=== PATIENT | male | born 1945 | race Caucasian/White ===

== ENCOUNTER 2017-11-03 11:58 | Inpatient (IN) ==
[2017-11-03] MEDS: Aspirin 81 MG TAB.CHEW PO SCH (14:19)
[2017-11-03 14:48] LABS: Basophils % 0.5 %; Eosinophils # 0.2 K/mcL (0.0-0.6); Eosinophils % 3.5 %; Hematocrit 39.8 % (37.5-50.1); Hemoglobin 13.1 g/dL (12.9-16.9); Immature Granulocytes % 0.2 % (0-4); Lymphocytes # 1.7 K/mcL (0.6-4.6); Lymphocytes % 25.2 %; Mean Corpuscular HGB Conc 32.9 g/dL (31.6-35.5); Mean Corpuscular Hemoglobin 27.6 pg (28.0-33.3); Monocytes # 0.4 K/mcL (0.0-1.3); Monocytes % 5.9 %; Neutrophils # 4.3 K/mcL (1.6-8.9); Platelet Count 203 K/mcL (140-400); Red Blood Count 4.74 M/mcL (4.19-5.50); Red Cell Distribution Width 13.2 % (11.5-14.5); Segmented Neutrophils % 64.7 %
[2017-11-03 14:54] LABS: INR 1.1; Prothrombin Time 12.1 Seconds (9.4-12.1)
[2017-11-03] MEDS ORDERED: ISOVUE-370 200 ML INFUS..BTL IV ONE (14:55)
[2017-11-03] MEDS ORDERED: Heparin 1,000 UNITS/500 mL 500 ML ONE ×2 (14:55→15:45)
[2017-11-03] MEDS ORDERED: 0.9 % Sodium Chloride 1,000 ML ONE ×2 (14:55→15:14)
[2017-11-03] MEDS ORDERED: *HR* Heparin 10,000 UNIT/10 ML VIAL ONE (14:55)
[2017-11-03] MEDS ORDERED: Nitroglycerin 1,000 MCG/10 ML VIAL IV ONE ×2 (14:55→15:51)
--- NOTE | 2017-11-03 14:57 | Cardiology History & Physical ---
<Enmanuel Drew L - Last Filed: 11/03/17 14:55> Date of Encounter: 11/03/17 Time of Encounter: 14:55 Assessment and Plan (1) Abnormal stress test Current Visit: Yes Status: Acute The assessment and plan as outlined above was discussed with the patient and/or family members who expressed understanding and agreement. All questions were answered. Sent from [facility] by Dr. Mejia for severely abnormal stress test. Stress test showed ischemia in the inferiolateral leads during stress. There was TID. Perfusion imaging showed a large sized, moderate intensity defect in the inferior and inferiolateral wall. C/o typical chest pain symptoms. Cardiac risk factors include significant family history, HTN, HLD. R/B/A of [facility] reviewed with patient and . He is agreeable to proceed. Labs pending. (2) Unstable angina Current Visit: Yes Status: Acute The assessment and plan as outlined above was discussed with the patient and/or family members who expressed understanding and agreement. All questions were answered. (3) Hypertension Current Visit: No Status: Chronic The assessment and plan as outlined above was discussed with the patient and/or family members who expressed understanding and agreement. All questions were answered. Continue HCTZ. Qualifiers: Hypertension type: essential hypertension Qualified Code(s): I10 - Essential (primary) hypertension History of Present Illness Chief complaint: NSTEMI HPI: Mr. Sorensen is a 72 year old male with past medical history of HTN and HLD who presented from out patient stress lab with abnormal stress test and chest pain. He c/o intermittent substernal chest pain radiating to his neck with physical exertion over the past several months that increased in the past month. Denies SOB or palpitations. Denies orthopnea, PND, or edema. Denies previous history of CAD. Past Med Surg Social Fam HX - Past Medical History Medical history: hyperlipidemia, hypertension Psychiatric history: no psych history - Past Surgical History Surgical History: no surgical history - Social History Smoking Status: Never smoker Smokeless Tobacco Status: No Alcohol use: none Drug use: none - Family History Mother Living Status: Age at : 56 Cause of : CANCER OVERIAN Father Living Status: Age at : 46 Cause of : [place] Medications and Allergies Atorvastatin [Lipitor] 40 mg PO HS 03/04/17 [History] hydroCHLOROthiazide [Hydrochlorothiazide] 25 mg PO DAILY 12/06/17 [History] 3 Allergy/AdvReac Type Severity Reaction Status Date / Time No Known Allergies Allergy Verified 11/03/17 15:04 All Systems Review: The remainder of the systems were reviewed and are negative Physical Examination Vital Signs, Last 4 Hours Temp Pulse Resp BP Pulse Ox 11/03/17 13:30 97.7 F 62 18 145/88 99 General: Conversant, No Apparent Distress HEENT: Atraumatic, Normocephaly, Mucus Membranes Moist Neck: No JVD, Normal carotid pulses Cardiac: Reg Rate and Rhythm, Normal S1 and S2, No Murmur Lungs: Normal Breath Sounds, No Wheeze, Rales, Rhonchi Neuro: Alert and responsive, No focal deficits noted Abdomen: Soft, Non-Tender Skin: No rashes noted on visualized skin Musculoskeletal: No Chest Wall Tenderness Extremities: No Clubbing, No Cyanosis, No Edema, Normal Pulses Results 11/03/17 14:20 Lab Results 11/03/17 14:20 WBC 6.6 Hgb 13.1 Hct 39.8 Plt Count 203 - Imaging and Cardiology Stress Test: report reviewed - EKG Interpretation EKG results cardiology: personally reviewed <Kel Hidalgo - Last Filed: 11/03/17 15:14> Date of Encounter: 11/03/17 - Attending Attestation I have personally performed a face to face evaluation on this patient. I have reviewed and agree with the care plan. History and Exam by me shows: 72 YOM with crescendo angina presents after an abnormal stress test with significant ischemia and TID. LVEF preserved. R/B/A d/w pt and he agrees to proceed with a [facility]. History of Present Illness HPI: Mr. Sorensen is a 72 year old male All Systems Review: The remainder of the systems were reviewed and are negative Physical Examination Vital Signs, Last 4 Hours Temp Pulse Resp BP Pulse Ox 11/03/17 13:30 97.7 F 62 18 145/88 99 Results 11/03/17 14:20 11/03/17 14:20 Lab Results 11/03/17 11/03/17 11/03/17 14:20 14:20 14:20 WBC 6.6 Hgb 13.1 Hct 39.8 Plt Count 203 INR 1.1 Sodium 142 Potassium 4.4 Chloride 106 Carbon Dioxide 32 H BUN 24 H Creatinine 0.87 Glucose 97 Calcium 9.6
[2017-11-03 14:59] LABS: BUN/Creatinine Ratio 28 (6-26); Blood Urea Nitrogen 24 mg/dL (8-23); Calcium 9.6 mg/dL (8.6-10.3); Carbon Dioxide 32 mEq/L (23-29); Chloride 106 mEq/L (98-107); Glucose 97 mg/dL (70-105); Osmolality,Calculated 298 (280-300); Potassium 4.4 mEq/L (3.5-5.1); Sodium 142 mEq/L (136-145); eGFR For African Americans > 60 (> 60); eGFR For Non-African Americans > 60 (> 60)
--- NOTE | 2017-11-03 15:12 | Pre-Sedation Evaluation ---
Pre-sedation evaluation - Pre-sedation checklist Date of procedure: 11/03/17 Procedure: LEFT HEART CATH Recent Vitals: Last Vital Signs Temp 97.7 F 11/03/17 13:30 Pulse 62 11/03/17 13:30 Resp 18 11/03/17 13:30 BP 145/88 11/03/17 13:30 Pulse Ox 99 11/03/17 13:30 H&P (including ROS) documented in medical record: (TRANSFER FROM [facility]) Previous reaction to sedatives/anesthetics: No Dietary Status: NPO after Midnight Dentition: No loose teeth or bridges ASA Classification *see protocol: CLASS II-Mild systemic disease
[2017-11-03] MEDS ORDERED: *HR* FentaNYL (PF) 100 MCG/2 ML VIAL ONE ×2 (15:13→15:53)
[2017-11-03] MEDS ORDERED: *HR* Midazolam HCl 2 MG/2 ML VIAL ONE ×2 (15:13→15:53)
[2017-11-03] MEDS ORDERED: Heparin 25,000 UNIT/500 ML D5W 25,000 UNIT/500 ML BAG IVC ONE (15:39)
[2017-11-03] MEDS ORDERED: Nitroglycerin Spray 4.9 GM BOTTLE ONE ×2 (15:45→15:49)
[2017-11-03] MEDS ORDERED: *HR* Labetalol 100 MG/20 ML MDV ONE (15:48)
[2017-11-03] MEDS ORDERED: Dextrose 50 % in Water (Vial) 30 ML, Sodium Bicarbonate 20 MEQ, Potassium Chloride 15 M... TH ONE (16:34)
[2017-11-03] MEDS ORDERED: Norepinephrine 4 MG in D5% in Water 250 ML IVC PRN (16:34)
[2017-11-03] MEDS ORDERED: Insulin Human Regular 100 UNIT in 0.9 % Sodium Chloride 100 ML IV PRN (16:34)
--- NOTE | 2017-11-03 16:43 | Cardiothoracic Consult Note ---
Date of Encounter: 11/03/17 Time of Encounter: 16:40 Assessment and Plan (1) Unstable angina Current Visit: Yes Status: Acute The assessment and plan as outlined above was discussed with the patient and/or family members who expressed understanding and agreement. All questions were answered. I discussed emergency coronary artery bypass grafting with the patient. This would include a left internal mammary artery to his LAD. We will attempt to graft the circumflex. However, the marginal branches are quite small and may not be graftable. We will also attempt to graft the diagonal branch. Risks of surgery include , infection, stroke, bleeding, myocardial infarction, clots around the heart, renal or respiratory failure, acute or chronic graft closure, phrenic nerve injury and sternal dehiscence. The procedure, its risks , and if it is and alternatives were explained and he wishes to proceed. At this point, he has no questions. - History of Present Illness History of present illness: Mr. Sorensen is a 72 year old male The patient is a 72-year-old gentleman who was admitted with a positive stress test. He has had a history of angina for several months, but no history of myocardial infarction. Cardiac catheterization revealed calcified left main disease and proximal LAD. He had 10 out of 10 chest pain in the [employer]. However, in an intra-aortic balloon pump was inserted in this chest pain reduced to 2. His LAD in diagonal looked to be bypassable. His right coronary artery and marginal branches of the circumflex looked quite small and probably will not be bypassable. Past medical history is notable for hypertension and hyperlipidemia. Family history is positive for coronary artery disease. Social history. He is a [employer], but does accept blood. Does not smoke and does not drink. Review of systems is negative for stroke or TIA. Negative for saphenous vein varicosities or strippings. Past Med Surg Social Fam HX - Past Medical History Medical history: hyperlipidemia, hypertension Psychiatric history: no psych history - Past Surgical History Surgical History: no surgical history - Social History Smoking Status: Never smoker Smokeless Tobacco Status: No Alcohol use: none Drug use: none - Family History Mother Living Status: Age at : 56 Cause of : CANCER OVERIAN Father Living Status: Age at : 46 Cause of : [place] Medications and Allergies Atorvastatin [Lipitor] 40 mg PO HS 03/04/17 [History] hydroCHLOROthiazide [Hydrochlorothiazide] 25 mg PO DAILY 06/16/17 [History] 3 Allergy/AdvReac Type Severity Reaction Status Date / Time No Known Allergies Allergy Verified 11/03/17 15:04 All Systems Review: The remainder of the systems were reviewed and are negative Physical Examination Vital Signs, Last 4 Hours Temp Pulse Resp BP Pulse Ox 11/03/17 13:30 97.7 F 62 18 145/88 99 Pupils are equal, round and reactive to light and accommodation. No oral lesions. Neck is supple. Trachea in the midline. No thyromegaly or carotid bruits. Lungs are clear to percussion and auscultation. Heart is in a regular rate and rhythm. No murmurs, gallops or rubs. Abdomen is benign. No tenderness, rebound or guarding. Extremities without saphenous vein varicosities or strippings. Without edema. Cranial nerves, motor and sensory intact. Results 11/03/17 14:20 11/03/17 14:20 Lab Results, Last 24 hours 11/03/17 11/03/17 11/03/17 14:20 14:20 14:20 WBC 6.6 Hgb 13.1 Hct 39.8 Plt Count 203 INR 1.1 Sodium 142 Potassium 4.4 Chloride 106 Carbon Dioxide 32 H BUN 24 H Creatinine 0.87 Glucose 97 Calcium 9.6 Consult Discharge Plan - Plan Referrals: Kristie Anand MD [Primary Care Provider] -
[2017-11-03] MEDS ORDERED: CeFAZolin Syr 2,000MG/20 ML 2,000 MG/20 ML SYRINGE IVPB ONE (16:47)
[2017-11-03 17:30] LABS: INR 1.2
[2017-11-03] MEDS ORDERED: Verapamil 5 MG/2 ML VIAL ONE (17:30)
[2017-11-03 17:34] LABS: BUN/Creatinine Ratio 29 (6-26); Blood Urea Nitrogen 23 mg/dL (8-23); Carbon Dioxide 29 mEq/L (23-29); Chloride 106 mEq/L (98-107); Chol/HDL Ratio 2.6 (0-4.9); Cholesterol 162 mg/dL (< 200); Glucose 108 mg/dL (70-105); HDL Cholesterol 63 mg/dL (40-59); LDL Cholesterol,Calculated 90 mg/dL (0-99); Osmolality,Calculated 292 (280-300); Sodium 139 mEq/L (136-145); Triglycerides 43 mg/dL (< 150); eGFR For African Americans > 60 (> 60); eGFR For Non-African Americans > 60 (> 60)
[2017-11-03 17:48] LABS: Activated Partial Thrombo Time > 360.0 Seconds (26.0-36.0)
[2017-11-03 17:53] LABS: Heparin anti-factor XA UFH 0.98 IU/mL (0.30-0.70)
[2017-11-03] MEDS ORDERED: *HR* FentaNYL (PF) 250 MCG/5 ML VIAL ONE (18:13)
[2017-11-03] MEDS ORDERED: *HR* Midazolam HCl 5 MG/5 ML VIAL IVP ONE (18:13)
--- NOTE | 2017-11-03 18:31 | Invasive Diagnostic Lab Proc ---
Name: Timoteo Sorensen Date of Study: 11/03/2017 Date: 1945 Ht: 71.0in Medical Record#: [id number] Age: 72 Wt: 185.41lb Gender: Male BSA: 2.04 Order #: [id number] BMI: 25.87 Physicians Procedure Physician: Kel Hidalgo MD Referring MD: Referring MD: Staff Name Position Time In Neisha Lim RN Cattle Dipper 03:13 PM Arron Lynne RN Monitor 03:13 PM Bibiana Espinoza RT Scrub 03:13 PM Nany Ng RN Cattle Dipper 03:14 PM Indications Indication Abnormal Test - Stress Procedures Performed Procedure L HRT ARTERY/VENTRICLE ANGIO IABP INSERTION, PERCUTANEOUS Pre-Procedure Checklist Informed consent is complete signed and on chart. H&P is on chart. ID band is on and ID verified with patient. Patient NPO for procedure The procedure was described for the patient and questions were answered. Blood Pressure: 142/84 ECG is on chart. Rhythm: NSR Plan of Care Patient will tolerate the procedure without complications. Adequate level of comfort will be maintained. Hemodynamics will remain stable Patient will recover from procedure without complications. Respiratory function will be maintained. Cardiac rhythm will remain stable. Patient temperature will be maintained. Patient and/or family have verbalized understanding of the procedure. Patient Education Chief Complaint/Reason for Test: Cardiac Cath Developmental Category: Geriatric (65+ years) Developmentally Appropriate for Age: Yes Learning Barriers: None Education Needs: Procedure Education Method: Verbal Information Taught: Cardiac Cath Educational Evaluation: Able to repeat information Intravenous Access Time IV Size Location DC'd Fluid/Drip Rate Units RN 03:09 PM 18g 1 1/4" Patent On Arrival Rt Arm 0.9NaCl 25 ml/hr Neisha Lim RN 04:00 PM Started with 18g needle 1 1/4" Lt Antecubital Nany Ng RN Allergies No Known Allergies Vital Signs Time BP (mmHg) HR (bpm) O2 Sat. RR (bpm) LOC 03:17 PM / % 5 = Fully awake and oriented or at pre-proc level 03:17 PM / % 5 = Fully awake and oriented or at pre-proc level 03:32 PM / % 4 = Oriented but drowsy 03:48 PM / % 4 = Oriented but drowsy 04:03 PM / % 4 = Oriented but drowsy 04:18 PM / % 4 = Oriented but drowsy 03:18 PM 142 / 84 77 97 % 16 03:22 PM 136 / 84 69 100 % 49 03:27 PM 130 / 74 74 100 % 20 03:32 PM 132 / 78 76 100 % 16 03:37 PM 129 / 74 83 99 % 23 03:42 PM 141 / 100 78 100 % 26 03:48 PM 144 / 103 84 97 % 6 03:52 PM 156 / 108 84 97 % 11 03:57 PM 146 / 90 74 94 % 17 04:04 PM 142 / 86 75 96 % 30 04:09 PM 140 / 82 69 94 % 7 04:13 PM 138 / 104 73 96 % 13 04:19 PM 134 / 95 73 95 % 8 04:24 PM 126 / 88 70 95 % 24 04:29 PM 136 / 85 72 97 % 17 04:33 PM / % 5 = Fully awake and oriented or at pre-proc level 04:49 PM / % 4 = Oriented but drowsy 05:04 PM / % 4 = Oriented but drowsy 05:19 PM / % 4 = Oriented but drowsy 05:45 PM 114 / 45 64 % 15 5 = Fully awake and oriented or at pre-proc level 05:34 PM / % 5 = Fully awake and oriented or at pre-proc level 05:54 PM 115 / 49 61 % 16 5 = Fully awake and oriented or at pre-proc level 05:49 PM / % 5 = Fully awake and oriented or at pre-proc level 06:09 PM 134 / 36 62 % 14 5 = Fully awake and oriented or at pre-proc level 06:04 PM / % 5 = Fully awake and oriented or at pre-proc level Procedural Medications Time Medication Dose Units Method Given By 03:17 PM Versed 1 mg Intravenous Neisha Lim RN 03:18 PM Fentanyl 50 mcg Intravenous Neisha Lim RN 03:26 PM Lidocaine 2% 10 ml Subcutaneous Kel Hidalgo MD 03:26 PM Lidocaine 2% 8 ml Subcutaneous Kel Hidalgo MD 03:38 PM Heparin 1000 units Intravenous Nany Ng RN 03:43 PM Heparin 4000 units Intravenous Nany Ng RN 03:43 PM Nitroglycerin 200 mcg Intraarterial Maximo Hidalgo MD 03:46 PM Versed 1 mg Intravenous Nany Ng RN 03:46 PM Fentanyl 50 mcg Intravenous Nany Ng RN 03:46 PM Nitroglycerin 700 mcg Intraarterial Maximo Hidalgo MD 03:49 PM Labetolol 10 mg Intravenous Nany Ng RN 03:50 PM Heparin 1000 units/hr Intravenous Nany Ng RN 03:54 PM Versed 0.5 mg Intravenous Nany Ng RN 03:54 PM Fentanyl 25 mcg Intravenous Nany Ng RN 03:55 PM Nitroglycerin 400 mcg Sublingual Nany Ng RN 03:57 PM Nitroglycerin 400 mcg Sublingual Nany Ng RN 04:01 PM Versed 0.5 mg Intravenous Neisha Lim RN 04:02 PM Fentanyl 25 mcg Intravenous Neisha Lim RN 04:09 PM Oxygen 4 L/min nasal cannula Nany Ng RN ASA Classification: CLASS II- Mild systemic disease (i.e. well-controlled diabetes, hypertension, asthma, cigarette smoking) Mariaelena Score Preprocedure Postprocedure Activity 2- Moves 4 extremities sustained head lift Activity 2- Moves 4 extremities sustained head lift Circulation 2- SBP +/= 20 points of pre-anesthetic level Circulation 2- SBP +/= 20 points of pre-anesthetic level Consciousness 2- Awake and alert oriented x 3 Consciousness 2- Awake and alert oriented x 3 O2 Saturation 2- Able to maintain O2 satruation of 92% on room air O2 Saturation 2- Able to maintain O2 satruation of 92% on room air Respiratory 2- Able to deep breathe and cough well Respiratory 2- Able to deep breathe and cough well Total Score 10 Total Score 10 Contrast Agent: Isovue Diagnostic Contrast: 70 ml Total Contrast: 70 ml Fluoro Dose: 424 mGy Procedure Log Time Note Enter By 03:13 PM Pt arrived to collaborative physician 1 at 15:13 cedwards 03:13 PM Neisha Lim RN Position: Cattle Dipper Time in: 15:13 cedwards 03:13 PM Arron Lynne RN Position: Monitor Time in: 15:13 cedwards 03:14 PM Bibiana Espinoza RT Position: Scrub Time in: 15:13 cedwards 03:14 PM Nany Ng RN Position: Cattle Dipper Time in: 15:14 cedwards 03:15 PM Physician arrived 15:15 cedwards 03:15 PM Petrona completed cedwards 03:15 PM Sign in performed according to hospital policy. cedwards 03:15 PM Procedure start 15:15 cedwards 03:15 PM CathStat 03:16 PM Vitals capture started with the following parameters, Patient=Adult, Interval=5 min, Initial Mshsiupf=606 mmHg, Deflation Rate=3 mmHg, Cuff placed on Right Arm 03:16 PM Patient charges- Angio tray pack, Navilyst 3mm J, Pulse Oximetry and ACIST tubing and transducer cedwards 03:17 PM Hair removed from procedure site in holding area using clippers. Bilateral groin prepped with Chloraprep by Deann Bhandari (R), then patient was draped. Skin intact. cedwards 03:17 PM Time: 15:17 Oxygen on at 2 L/min per nasal cannula by Neisha Lim RN cedwards 03:17 PM Recorded ECG: HR=76 Condition=Condition 1 03:17 PM Time: 15:17 Patient comfortable and pain free: Yes cedwards :17 PM Time: 15:17LOC: 5 = Fully awake and oriented or at pre-proc level cedwards 03:18 PM Time: 15:17 Versed 1 mg Intravenous Given by Neisha Lim RN cedwards 03:18 PM Time: 15:18 Fentanyl 50 mcg Intravenous Given by Neisha Lim RN cedwards 03:18 PM HR=77 bpm, IZFR=667/84 mmhg, SpO2=97.0 %, Resp=16 B/min 03:18 PM Clinical Presentation: Unstable angina cedwards 03:22 PM HR=69 bpm, QWMP=874/84 mmhg, AkQ6=490.0 %, Resp=49 B/min 03:23 PM ASA Class CLASS II- Mild systemic disease (i.e. well-controlled diabetes, hypertension, asthma, cigarette smoking) cedwards 03:23 PM Time out performed according to hospital policy cedwards 03:25 PM Pressure channel 1 zeroed. 03: PM Time: 15:26 10 ml Lidocaine 2% to right groin Subcutaneous Given by Kel Hidalgo MD cedwards 03: PM Time: 15:26 8 ml Lidocaine 2% to right groin Subcutaneous Given by Kel Hidalgo MD cedwards 03: PM Micro-Introducer Kit utilized for sheath placement cedwards 03:27 PM HR=74 bpm, CPWI=345/74 mmhg, HeL4=372.0 %, Resp=20 B/min 03:28 PM Access obtained by percutaneous puncture. 6Fr 10cm Terumo [place] sheath placed in right Femoral artery. [id number] ced 03:28 PM 3mL of contrast injected for right groin angiogram cedwards 03:29 PM 0.035 145cm Navilyst 3mmJ wire [id number] ced 03:29 PM 5Fr FR 4 catheter inserted over the wire [facility] ced 03:29 PM Recorded Pressure: Ao, HR=75, Condition=Condition 1 (Aorta) Ao 132/77/101 03:31 PM RCA angiography performed in multiple views. ced 03:31 PM Catheter removed ced 03:32 PM 5Fr FL 4 catheter inserted over the wire [facility] cedwards 03:32 PM HR=76 bpm, AHDW=197/78 mmhg, RgQ4=017.0 %, Resp=16 B/min 03:32 PM Time: 15:17 Patient comfortable and pain free: Yes cedwards 03:32 PM Recorded Pressure: Ao, HR=79, Condition=Condition 1 (Aorta) Ao 121/81/102 03:32 PM Time: 15:17LOC: 5 = Fully awake and oriented or at pre-proc level cedwards 03:34 PM LCA angiography performed in multiple views. cedwards 03:34 PM Recorded Pressure: Ao, HR=82, Condition=Condition 1 (Aorta) Ao 117/81/100 03:36 PM Catheter removed cedwards 03:36 PM 6Fr FL 4 catheter inserted over the wire [facility] cedwards 03:37 PM HR=83 bpm, QQAS=588/74 mmhg, SpO2=99.0 %, Resp=23 B/min 03:38 PM Time: 15:38 Heparin 1000 units Intravenous Given by Nany Ng RN ced 03:38 PM LCA angiography performed in multiple views. ced 03:39 PM Catheter removed ced 03:39 PM Cardiothoracic surgeon consulted by physician cedwards 03:40 PM Did you address BRIGHT flow and Dominance? Yes cedwards 03:40 PM Isovue 370 - 200ml,1 Bottle(s) used. cedwards 03:42 PM HR=78 bpm, SOEV=991/100 mmhg, MvM9=430.0 %, Resp=26 B/min 03:42 PM chest pain rated at a 5 out of 10 cedwards 03:43 PM Time: 15:43 Heparin 4000 units Intravenous Given by Nany Ng RN cedwards 03:43 PM Time: 15:43 Nitroglycerin 200 mcg Intraarterial Given by Maximo Hidalgo MD cedwards 03:44 PM Recorded ECG: HR=84 Condition=Condition 1 03:46 PM Time: 15:46 Versed 1 mg Intravenous Given by Nany Ng RN cedwards 03:46 PM Time: 15:46 Fentanyl 50 mcg Intravenous Given by Nany Ng RN cedwards 03:46 PM Time: 15:46 Nitroglycerin 700 mcg Intraarterial Given by Maximo Hidalgo MD cedwards 03:47 PM Recorded Pressure: Ao, HR=86, Condition=Condition 1 (Aorta) Ao 174/101/131 03:48 PM Time: 15:32LOC: 4 = Oriented but drowsy cedwards 03:48 PM Time: 15:32 Patient comfortable and pain free: No cedwards 03:48 PM HR=84 bpm, ONKN=670/103 mmhg, SpO2=97.0 %, Resp=6 B/min 03:49 PM Chest pain rated at a 10 out of 10, Dr. Hidalgo on phone with Dr. Redd cedwards 03:50 PM Time: 15:49 Labetolol 10 mg Intravenous Given by Nany Ng RN cedwards 03:50 PM Time: 15:50 Heparin 1000 units/hr Intravenous Given by Nany Ng RN cedwards 03:52 PM HR=84 bpm, FUZV=997/108 mmhg, SpO2=97.0 %, Resp=11 B/min 03:53 PM ICU bed requested cedwards 03:53 PM Perfusion made aware of patient status cedwards 03:53 PM Preparing for balloon pump placement cedwards 03:54 PM Recorded Pressure: Ao, HR=85, Condition=Condition 1 (Aorta) Ao 171/96/127 03:54 PM Time: 15:54 Versed 0.5 mg Intravenous Given by Nany Ng RN cedwards 03:54 PM Time: 15:54 Fentanyl 25 mcg Intravenous Given by Nany Ng RN cedwards 03:55 PM Time: 15:55 Nitroglycerin 0.4 mcg Sublingual Given by Nany Ng RN cedwards 03:56 PM Chest Pain rated at a 5 out of 10 now ced 03:57 PM HR=74 bpm, WFTP=349/90 mmhg, SpO2=94.0 %, Resp=17 B/min 03:57 PM Time: 15:57 Nitroglycerin 0.4 mcg Sublingual Given by Nany Ng RN 04:02 PM Time: 16:01 Versed 0.5 mg Intravenous Given by Neisha Lim RN 04:02 PM Time: 16:02 Fentanyl 25 mcg Intravenous Given by Neisha Lim RN cedwards 04:02 PM 8 Fr Maquet Balloon Pump IABP catheter inserted into right Femoral artery, 50 cc, *ACC* catheter inserted 1 ced 04: PM Time: 15:48 Patient comfortable and pain free: Yes : PM Time: 15:48LOC: 4 = Oriented but drowsy ced 04:03 PM Vitals capture started with the following parameters, Patient=Adult, Interval=5 min, Initial Avdymeno=712 mmHg, Deflation Rate=3 mmHg, Cuff placed on Right Arm 04:04 PM HR=75 bpm, GSHK=172/86 mmhg, SpO2=96.0 %, Resp=30 B/min 04:09 PM HR=69 bpm, IJBY=345/82 mmhg, SpO2=94.0 %, Resp=7 B/min 04:09 PM Time: 16:09 Oxygen on at 4 L/min per nasal cannula by Nany Ng RN ced 04:10 PM IABP Settings: 1:1 ratio ECG trigger ced 04:11 PM IABP sheath sutured to skin cedwards 04:12 PM Patient rated 2 out of 10 chest pain. ced 04:13 PM NIBP STAT measurement started. 04:13 PM IABP Augmented pressure, mean: 116 ced 04:13 PM HR=73 bpm, EMRY=684/104 mmhg, SpO2=96.0 %, Resp=13 B/min 04:14 PM Procedure completed at 15:40 cedwards 04:14 PM Did you address BRIGHT flow and Dominance? Yes ced 04:17 PM Sign out completed: Radiation Dose 423.94 mGy Fluoro Time: 5.2 Isovue 370 - 200ml contrast 70 ml given by Kel Hidalgo MD. Complications: NoneCardiac Rehab Consult needed: NoConfirmed administered medications: Yes cedwards 04:17 PM Isovue 370 - 200ml,1 Bottle(s) used. cedwards 04:17 PM Sheath left in place to be pulled on floor/holding areaV+Pad cedwards 04:17 PM Estimated Blood Loss: less than 20cc cedwards 04:17 PM Post ECG NSR cedwards 04:17 PM Post Blood Pressure 138/104 cedwards 04:17 PM 16:17 Post Pulses Bilateral DP & PT 1+ cedwards 04:18 PM Information taught Cardiac Cath cedwards 04:18 PM Time: 16:03 Patient comfortable and pain free: Yes cedwards 04:18 PM Time: 16:03LOC: 4 = Oriented but drowsy cedwards 04:18 PM Education needs Procedure, Plan of Care, and Responsibilities of Patient in Care cedwards 04:18 PM Learning barriers :None cedwards 04:18 PM Education Methods Verbal cedwards 04:18 PM Education evaluation Able to repeat information cedwards 04:19 PM Site status No bleeding/hematoma - Rt Groin as reported by Bibiana Espinoza RT at 16:18 cedwards 04:19 PM Opsite applied cedwards 04:19 PM HR=73 bpm, MHTF=953/95 mmhg, SpO2=95.0 %, Resp=8 B/min 04:19 PM Plavix, Effient or Brilinta given No cedwards 04:22 PM Plan for patient to have open heart surgery as soon as OR is ready. Dr. Redd and team setting up for procedure now. cedwards 04:23 PM Family placed in consult room. Family updated. cedwards 04:24 PM HR=70 bpm, TLXH=553/88 mmhg, SpO2=95.0 %, Resp=24 B/min 04:29 PM HR=72 bpm, RORL=279/85 mmhg, SpO2=97.0 %, Resp=17 B/min 04:33 PM Time: 16:18LOC: 4 = Oriented but drowsy cedwards 04:33 PM Time: 16:18 Patient comfortable and pain free: Yes cedwards 04:44 PM Lab staff drawing labs on patient now. cedwards 04:48 PM Time: 16:33 Patient comfortable and pain free: Yes cedwards 04:49 PM Time: 16:33LOC: 5 = Fully awake and oriented or at pre-proc level cedwards 04:49 PM Coronary Dominance: Left cedwards 04:50 PM Lesion found in Ostial LAD. Pre Stenosis: 95 Pre BRIGHT Flow: cedwards 04:50 PM Lesion found in Proximal LAD. Pre Stenosis: 98 Pre BRIGHT Flow: cedwards 04:51 PM Proximal Left Anterior Descending Coronary Artery with 98% stenosis. If graft is supplying this territory, 0 % stenosis. cedwards 04:52 PM Lesion found in 1st diagonal. Pre Stenosis: 50 Pre BRIGHT Flow: cedwards 04:52 PM Mid/Distal Left Anterior Descending Coronary Artery and diagonal branches with 50% stenosis. If graft is supplying this area, 0 % stenosis cedwards 04:53 PM Lesion found in Ostial Circumflex. Pre Stenosis: 95 Pre BRIGHT Flow: cedwards 04:53 PM Circumflex, Obtuse Marginal, Left Posterior Descending, and Left Posterolateral Coronary Arteries with 95 % stenosis. If graft is supplying this area, 0 % stenosis cedwards 05:03 PM Time: 16:48 Patient comfortable and pain free: Yes cedwards 05:04 PM Time: 16:49LOC: 4 = Oriented but drowsy cedwards 05:08 PM Patient will go to ICU 2 when bed is ready. cedwards 05:12 PM Report given to Robinson PATEL Pt taken to ICU Room #2. 17:12 cedwards 05:19 PM Time: 17:04LOC: 4 = Oriented but drowsy cedwards 05:19 PM Time: 17:03 Patient comfortable and pain free: Yes cedwards 05:34 PM Time: 17:19 Patient comfortable and pain free: Yes cedwards 05:34 PM Time: 17:19LOC: 4 = Oriented but drowsy cedwards 05:45 PM awaiting ICU bed at this time cedwards 05:48 PM PTT >360, pt on heparin gtt. Abnormal recieved by Kj Mcmahon RN cedwards 05:49 PM Time: 17:34LOC: 5 = Fully awake and oriented or at pre-proc level csmith 05:49 PM Time: 17:34 Patient comfortable and pain free: Yes csmith 06:04 PM Time: 17:49 Patient comfortable and pain free: No csmith 06:04 PM Time: 17:49LOC: 5 = Fully awake and oriented or at pre-proc level csmith 06:04 PM 2/10 chest pain, VSS. Pt educated to notify staff if pain worsens or changes csmith 06:19 PM Time: 18:04LOC: 5 = Fully awake and oriented or at pre-proc level csmith 06:19 PM Time: 18:04 Patient comfortable and pain free: Yes csmith 06:21 PM Anesthesia, Aubrey Elkins RN, Miguelina Doe at bedside to transport patient to OR via IABP. csmith 06:21 PM Patient out of room: 18:21 csmith Complications Complication None Hemodynamics Pressures Site Systolic/A Wave Diastolic/V Wave Mean AO 132 77 101 AO 121 81 102 AO 117 81 100 AO 174 101 131 AO 171 96 127 Post Procedure Information Blood Pressure: 138/104 mmHg Rhythm: NSR Post procedural instructions were given Surgery consult for CABG Site Checks Time Location Status Staff Sheath In? Note 04:18 PM Rt Groin No bleeding/hematoma Bibiana Espinoza RT Yes balloon pump in place 05:46 PM Rt Groin No bleeding/ No Hematoma Robinson Mcmahon RN Yes IABP in place 05:55 PM Rt Groin No bleeding/ No Hematoma Robinson Mcmahon RN Yes IABP in place 06:14 PM Rt Groin No bleeding/ No Hematoma Robinson Mcmahon RN Yes IABP in place Pulses Time Site Pre-Procedure Post-Procedure Note 11/03/2017 3:09:00 PM Bilateral DP & PT 1+ 4:17:00 PM Bilateral DP & PT 1+ Updated by Arron Lynne RN on 11/03/2017 6:22:01 PM electronically signed on 11/03/2017 6:22:42 PM with status of Final
[2017-11-03 19:01] LABS: ABG Base Excess 2 mEq/L (-2 to 3); ABG Chloride 107 mEq/L (98-107); ABG Glucose 109 mg/dL (60-95); ABG HCO3 28 mEq/L (21-27); ABG Ionized Calcium 1.21 mmol/L (1.15-1.35); ABG Oxygen Saturation 100 % (95-98); ABG PCO2 49 mmHg (35-45); ABG PH 7.37 pH Units (7.32-7.45); ABG PO2 365 mmHg (85-104); ABG TCO2 30 mEq/L (20-26)
[2017-11-03] MEDS ORDERED: Nitroglycerin 25 MG/250 ML INFUS..BTL IVC ONE (19:02)
[2017-11-03] MEDS ORDERED: Albumin Human 5% 50.0 GM/1,000 ML VIAL ONE (19:03)
[2017-11-03] MEDS ORDERED: *HR* Etomidate 20 MG/10 ML AMPUL IVP ONE (19:59)
[2017-11-03] MEDS ORDERED: Protamine Sulfate 250 MG/25 ML VIAL IVP ONE (19:59)
[2017-11-03] MEDS ORDERED: Lidocaine 2% Syringe 100 MG/5 ML ONE (19:59)
[2017-11-03] MEDS ORDERED: Dexamethasone 4 MG/ML VIAL ONE (20:00)
[2017-11-03] MEDS ORDERED: *HR* Rocuronium Bromide 50 MG/5 ML VIAL ONE (20:00)
[2017-11-03] MEDS ORDERED: Ondansetron 4 MG/2 ML VIAL ONE (20:00)
[2017-11-03] MEDS ORDERED: *HR* PHENYLEPHRINE 1,000 MCG/10 ML SYRINGE IVP ONE (20:00)
[2017-11-03] MEDS ORDERED: Tranexamic Acid 1,000 MG/10 ML VIAL ONE (20:04)
[2017-11-03 20:16] LABS: ABG Base Excess 1 mEq/L (-2 to 3); ABG Chloride 108 mEq/L (98-107); ABG Glucose 115 mg/dL (60-95); ABG HCO3 25 mEq/L (21-27); ABG Ionized Calcium 1.12 mmol/L (1.15-1.35); ABG Oxygen Saturation 100 % (95-98); ABG PCO2 38 mmHg (35-45); ABG PH 7.43 pH Units (7.32-7.45); ABG PO2 525 mmHg (85-104); ABG TCO2 27 mEq/L (20-26)
--- NOTE | 2017-11-03 20:16 | Anesthesia Evaluation PreOp ---
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 HX Other Medical History: Denies Any Significant HX Anesthesia History: No Prior Anesthetic Complications, Past Anesthesia Alcohol Use: none Drug use: none Medications and Allergies Atorvastatin [Lipitor] 40 mg PO HS 03/04/17 [History] hydroCHLOROthiazide [Hydrochlorothiazide] 25 mg PO DAILY 06/16/17 [History] 3 Allergy/AdvReac Type Severity Reaction Status Date / Time No Known Allergies Allergy Verified 11/03/17 15:04 - Meds/Allergy Pre-op Review Medications Reviewed: Yes Allergies Reviewed: Yes Beta Blockers on Current Med List: No Anesthesia Results - Labs 11/03/17 14:20 11/03/17 17:05 Anesthesia Exam - HEENT Teeth: Poor dentition - Pulmonary Breath Sounds: bilateral Clear Respiratory Effort: Symmetrical Anesthesia Assess/Plan ASA Score: 4, E Modified [place] Scale for Level of Consciousness: Cooperative, oriented, and tranquil Anesthetic Plan: General Monitoring Plan: Standard Monitors, A-Line, PAC, WILLIS Recovery Plan: ICU
[2017-11-03 20:27] LABS: Estimated Average Glucose 126 mg/dl
[2017-11-03] MEDS ORDERED: Water for inj. (sterile) 10 ML IV ONE (20:42)
[2017-11-03] MEDS ORDERED: Propofol 500 MG/50 ML INFUS..BTL ONE (20:45)
[2017-11-03 20:52] LABS: ABG Base Excess 3 mEq/L (-2 to 3); ABG Chloride 104 mEq/L (98-107); ABG Glucose 203 mg/dL (60-95); ABG HCO3 27 mEq/L (21-27); ABG Ionized Calcium 0.95 mmol/L (1.15-1.35); ABG Oxygen Saturation 100 % (95-98); ABG PCO2 34 mmHg (35-45); ABG PO2 433 mmHg (85-104); ABG TCO2 28 mEq/L (20-26)
[2017-11-03] MEDS ORDERED: Protamine Sulfate 50 MG/5 ML VIAL IVP ONE (21:22)
[2017-11-03 21:25] LABS: ABG Base Excess 2 mEq/L (-2 to 3); ABG Chloride 100 mEq/L (98-107); ABG Glucose 170 mg/dL (60-95); ABG HCO3 27 mEq/L (21-27); ABG Ionized Calcium 1.01 mmol/L (1.15-1.35); ABG Oxygen Saturation 100 % (95-98); ABG PCO2 42 mmHg (35-45); ABG PH 7.41 pH Units (7.32-7.45); ABG PO2 273 mmHg (85-104); ABG TCO2 28 mEq/L (20-26)
[2017-11-03] MEDS ORDERED: Acetaminophen 325 MG TABLET PO PRN (22:07)
[2017-11-03] MEDS ORDERED: Ondansetron 4 MG/2 ML VIAL IVP PRN (22:07)
[2017-11-03] MEDS ORDERED: Potassium Chloride 40 MEQ/200 ML BAG IVPB PRN (22:07)
[2017-11-03] MEDS ORDERED: Naloxone 0.4 MG/ML INJ IVP PRN (22:07)
[2017-11-03] MEDS ORDERED: Insulin LISPRO 300 UNITS/3 ML VIAL SQ PRN (22:07)
[2017-11-03] MEDS ORDERED: *HR* Dextrose 50 % in Water (Syg) 50 ML SYRINGE IVP PRN (22:07)
[2017-11-03] MEDS ORDERED: *HR* Promethazine 25 MG/ML VIAL IVP PRN (22:07)
--- NOTE | 2017-11-03 22:27 | Anesthesia Evaluation Post Op ---
Date of Encounter: 11/03/17 Time of Encounter: 22:30 - Lungs Lungs: Clear Ascult./Percussion - Airway Airway: Intubated - Cardiovascular Regular Rate - Mental Status Mental Status: Sedated - Pain Pain Scale used: Unable to assess - Nausea Vomiting Nausea Vomiting: Not Present - Hydration Hydration: NPO
--- NOTE | 2017-11-03 22:30 | Operative Note ---
Date of procedure: 11/03/17 Was there an education assistant present: Yes Dental Specialist: Gonzalo Sequeira Estimated blood loss (cc): 750 Specimen: none Condition: critical Disposition: ICU Procedure in Detail: Preoperative diagnosis. Coronary artery disease. Postoperative diagnosis. Same. Procedures. Coronary artery bypass grafting 2 with the left internal mammary artery to the LAD in the aorta to the intermediate branch of the circumflex with saphenous vein. Surgeon. Dr. Gilberto Redd. Asst. Gonzalo Sequeira. The patient is a 72-year-old gentleman who presented with a positive stress test. Cardiac catheterization revealed severe coronary artery disease and he began to have 10 out of 10 chest pain. A percutaneous intra-aortic balloon pump was inserted and he was referred for emergency surgery. He was brought to the operating room where he underwent a general anesthetic. He was prepped and draped in standard fashion. The left greater saphenous vein was harvested from the left knee to the left ankle. This was done through 2 small incisions using the scope. These incisions were subsequently closed using a deep layer of 0 Vicryl and a 2-0 Vicryl subcuticular stitch. A standard median sternotomy was performed. The left internal mammary artery retractor was inserted and the left internal mammary artery was harvested in standard fashion using the Bovie electrocoagulation. Following this, the mammary retractor was removed and the standard sternal supervisor housecleaner was inserted. Pericardium was opened in the midline and was suspended with 2-0 silk stay sutures. A purse string of 20 Surgilon was placed in the aorta for the aortic cannulation site. A pursestring of 20 Surgilon was placed in the right atrial appendage for the venous uptake. The patient was heparinized. The aorta was cannulated without difficulty. 2 stage venous uptake cannula was inserted through the right atrial appendage. A pursestring of 3-0 silk was placed in the aorta and the cardioplegia needle was inserted through here. This was also uses an active and passive aortic vent. The patient was placed on cardiopulmonary bypass and cooled to 34.5 degrees. At this point, the aorta was crossclamped and a liter of antegrade cardioplegia was given. Topical cooling with iced saline slush was also done. Attention was first turned to the circumflex. The marginal branches were too small for grafting. We did select the intermediate branch. This was dissected free with the [place] blade and opened with a [place] blade and the Sosa scissors. This had a lumen of 1-1/2 mm with moderate diffuse disease. A standard end-to-side anastomosis was constructed using the saphenous vein and a 7-0 Prolene. When this was flushed, it did fill the distal circumflex. The patient received the last dose of antegrade cardioplegia. Mammary pedicle was harvested. Tonsil clamp was placed distally and was divided with the Metzenbaum scissors. Distal end was tied with a 2-0 silk suture. Proximal end was trimmed and brought into the wound. The LAD was dissected free with the [place] blade and found to be diffusely diseased out to its tip. It was opened distally with the [place] blade and the Sosa scissors. It had a lumen of 1-1/2 mm with moderate diffuse plaquing. A standard end-to- side anastomosis was constructed using the mammary artery and a 7-0 Prolene. When this is completed, the previously placed bulldog clamp was removed and the hemostasis was good. Pedicles tacked the service heart using 2 interrupted 5-0 silk sutures. Cross-clamp was removed and rewarming was begun. Total cross- clamp time was 35 minutes. A side-biting clamp was placed on the aorta and the cardioplegia needle was removed. A hole was made in the aorta using a [place] blade and the 4.5 mm aortic punch. A standard end-to-side anastomosis was constructed using the saphenous vein in a 5-0 Prolene. Following this, the side -biting clamp was removed. Graft was de-aired use #25-gauge needle and the previously placed bulldog clamp was removed. Distal anastomoses were inspected and found to be hemostatic. Proximal anastomosis was marked with the marker from Ray-Juan sponge. A pair of ventricular pacing wires was left. A 32 angled chest tube to the left pleural space. A 32 angle chest tube to the pericardial well. A 40 mediastinal chest tube. A 32 right angle chest tube to the right pleural space. I did place some FloSeal and fibrillar around the proximal and distal anastomoses. The patient was weaned from bypass and decannulated. Hemostasis was good and the hemodynamics were good. Pericardium was left open. We did place platelet rich and platelet poor plasma on the sternum and tissues above the sternum. Sternum was closed with #7 sternal wires in simple and [id number] fashion. Fascia was run with a #1 Vicryl. Subcutaneous tissues with a 2-0 Vicryl. Skin was closed with a 3-0 Vicryl subcuticular stitch. The patient tolerated the procedure well and was returned to intensive care unit in satisfactory and stable condition. Total bypass time 62 minutes. Total cross-clamp time 35 minutes. He been cooled to 34.5 degrees.
[2017-11-03 22:37] LABS: ABG Base Excess 2 mEq/L (-2 to 3); ABG HCO3 26 mEq/L (21-27); ABG Oxygen Saturation 95 % (95-98); ABG PCO2 38 mmHg (35-45); ABG PH 7.44 pH Units (7.32-7.45); ABG PO2 72 mmHg (85-104); ABG TCO2 27 mEq/L (20-26); Blood Gas Modality ASSIST CONTROL; Blood Gas PEEP 5 cm H2O; Blood Gas Respiration Rate 10; Blood Gas VT 710 cc
[2017-11-03] MEDS ORDERED: 0.9 % Sodium Chloride 500 ML ONE (22:38)
[2017-11-03] MEDS: *HR* FentaNYL (PF) 100 MCG/2 ML VIAL IVP PRN (22:45)
[2017-11-03 22:46] LABS: Basophils % 0.2 %; Eosinophils # 0.1 K/mcL (0.0-0.6); Eosinophils % 0.8 %; Hematocrit 27.5 % (37.5-50.1); Immature Granulocytes % 0.9 % (0-4); Lymphocytes # 1.7 K/mcL (0.6-4.6); Lymphocytes % 10.6 %; Mean Corpuscular HGB Conc 33.5 g/dL (31.6-35.5); Mean Corpuscular Hemoglobin 28.3 pg (28.0-33.3); Mean Corpuscular Volume 84.6 fL (83.0-100.0); Mean Platelet Volume 9.1 fL (9.4-12.4); Monocytes # 0.8 K/mcL (0.0-1.3); Monocytes % 5.1 %; Neutrophils # 13.1 K/mcL (1.6-8.9); Platelet Count 152 K/mcL (140-400); Red Blood Count 3.25 M/mcL (4.19-5.50); Segmented Neutrophils % 82.4 %
[2017-11-03 22:52] LABS: INR 1.6
[2017-11-03 22:54] LABS: Activated Partial Thrombo Time 34.5 Seconds (26.0-36.0)
[2017-11-03] MEDS ORDERED: *HR* Vecuronium 10 MG VIAL IVP ONE (22:54)
[2017-11-03 23:06] LABS: Hemoglobin 9.2 g/dL (12.9-16.9)
[2017-11-03 23:10] LABS: BUN/Creatinine Ratio 26 (6-26); Blood Urea Nitrogen 20 mg/dL (8-23); Calcium 8.3 mg/dL (8.6-10.3); Carbon Dioxide 24 mEq/L (23-29); Chloride 108 mEq/L (98-107); Glucose 107 mg/dL (70-105); Magnesium 2.6 mg/dL (1.6-2.6); Osmolality,Calculated 295 (280-300); Potassium 3.7 mEq/L (3.5-5.1); Sodium 141 mEq/L (136-145); eGFR For African Americans > 60 (> 60); eGFR For Non-African Americans > 60 (> 60)
[2017-11-03] MEDS: Dexmedetomidine HCl 400 MCG/100 ML MLS IVC SCH (23:15)
[2017-11-03] MEDS: Norepinephrine 4 MG in D5% in Water 250 ML IVC SCH (23:34)
[2017-11-04] MEDS ORDERED: CeFAZolin Pre 2,000 MG/100 ML 2,000 MG/100 ML BAG IVPB SCH
[2017-11-04] MEDS: Insulin Human Regular 100 UNIT in 0.9 % Sodium Chloride 100 ML IVC SCH ×2 (00:15→20:19)
[2017-11-04 00:34] LABS: ABG Base Excess 2 mEq/L (-2 to 3); ABG Chloride 107 mEq/L (98-107); ABG Glucose 200 mg/dL (60-95); ABG HCO3 27 mEq/L (21-27); ABG Oxygen Saturation 99 % (95-98); ABG PCO2 45 mmHg (35-45); ABG PH 7.39 pH Units (7.32-7.45); ABG PO2 157 mmHg (85-104); ABG TCO2 28 mEq/L (20-26)
[2017-11-04] MEDS ORDERED: SODIUM CHLORIDE 0.9% IVPB ONE (01:00)
[2017-11-04] MEDS ORDERED: DESMOPRESSIN IVPB ONE (01:00)
[2017-11-04] MEDS: Chlorhexidine Rinse 15 ML MOUTHWASH MM SCH ×4 (01:29→20:08)
[2017-11-04] MEDS ORDERED: 0.9 % Sodium Chloride 250 ML ONE (01:35)
[2017-11-04 01:41] LABS: ABG Base Excess 0 mEq/L (-2 to 3); ABG Chloride 109 mEq/L (98-107); ABG Glucose 204 mg/dL (60-95); ABG HCO3 26 mEq/L (21-27); ABG Ionized Calcium 1.24 mmol/L (1.15-1.35); ABG Oxygen Saturation 99 % (95-98); ABG PCO2 46 mmHg (35-45); ABG PH 7.36 pH Units (7.32-7.45); ABG PO2 160 mmHg (85-104); ABG TCO2 27 mEq/L (20-26)
[2017-11-04] MEDS ORDERED: Heparin 15,000 UNIT in 0.9 % Sodium Chloride 500 ML IV SCH (02:00)
[2017-11-04] MEDS ORDERED: Dextrose 50 % in Water (Vial) 30 ML, Sodium Bicarbonate 20 MEQ, Lidocaine 1% 5 ML, Insu... TH SCH (02:00)
[2017-11-04] MEDS: niCARdipine 40 MG/200 ML MLS IVC SCH ×5 (02:02→20:25)
[2017-11-04] MEDS: Nitroglycerin 25 MG/250 ML INFUS..BTL IVC SCH ×4 (02:03→20:24)
[2017-11-04 02:30] LABS: ABG Base Excess 1 mEq/L (-2 to 3); ABG HCO3 26 mEq/L (21-27); ABG Oxygen Saturation 98 % (95-98); ABG PCO2 39 mmHg (35-45); ABG PH 7.43 pH Units (7.32-7.45); ABG PO2 104 mmHg (85-104); ABG TCO2 27 mEq/L (20-26); Blood Gas Modality ASSIST CONTROL; Blood Gas PEEP 5 cm H2O; Blood Gas Respiration Rate 10; Blood Gas VT 710 cc
[2017-11-04 02:52] LABS: Basophils % 0.1 %; Eosinophils % 0.1 %; Hematocrit 27.7 % (37.5-50.1); Hemoglobin 9.5 g/dL (12.9-16.9); Immature Granulocytes % 0.7 % (0-4); Lymphocytes # 0.5 K/mcL (0.6-4.6); Lymphocytes % 4.4 %; Mean Corpuscular HGB Conc 34.3 g/dL (31.6-35.5); Mean Corpuscular Hemoglobin 28.9 pg (28.0-33.3); Mean Corpuscular Volume 84.2 fL (83.0-100.0); Monocytes # 0.8 K/mcL (0.0-1.3); Monocytes % 6.2 %; Neutrophils # 10.7 K/mcL (1.6-8.9); Platelet Count 155 K/mcL (140-400); Red Blood Count 3.29 M/mcL (4.19-5.50); Red Cell Distribution Width 13.4 % (11.5-14.5); Segmented Neutrophils % 88.5 %
[2017-11-04 03:02] LABS: BUN/Creatinine Ratio 24 (6-26); Blood Urea Nitrogen 19 mg/dL (8-23); Calcium 8.7 mg/dL (8.6-10.3); Carbon Dioxide 25 mEq/L (23-29); Chloride 110 mEq/L (98-107); Glucose 175 mg/dL (70-105); Osmolality,Calculated 301 (280-300); Potassium 3.7 mEq/L (3.5-5.1); Sodium 142 mEq/L (136-145); eGFR For African Americans > 60 (> 60); eGFR For Non-African Americans > 60 (> 60)
[2017-11-04] MEDS: *HR* FentaNYL (PF) 100 MCG/2 ML VIAL IVP PRN ×2 (04:24→14:03)
[2017-11-04] MEDS: 0.9 % Sodium Chloride w KCl 20 MEQ/1,000 ML MLS IVC SCH ×3 (04:29→20:08)
[2017-11-04 05:26] LABS: INR 1.3
[2017-11-04 05:29] LABS: Activated Partial Thrombo Time 28.2 Seconds (26.0-36.0)
[2017-11-04 05:33] LABS: Prothrombin Time 14.3 Seconds (9.4-12.1)
[2017-11-04 06:20] LABS: ABG Base Excess 2 mEq/L (-2 to 3); ABG HCO3 26 mEq/L (21-27); ABG Oxygen Saturation 98 % (95-98); ABG PCO2 38 mmHg (35-45); ABG PH 7.44 pH Units (7.32-7.45); ABG PO2 96 mmHg (85-104); ABG TCO2 27 mEq/L (20-26); Blood Gas Modality ASSIST CONTROL; Blood Gas PEEP 5 cm H2O; Blood Gas Respiration Rate 10; Blood Gas VT 710 cc
--- NOTE | 2017-11-04 07:20 | Cardiothoracic Progress Note ---
Date of Encounter: 11/04/17 Time of Encounter: 07:17 - Assessment and plan (1) Unstable angina Current Visit: Yes Status: Acute Hopefully, the patient can be extubated later this morning. We will plan to remove the intra-aortic balloon pump later this morning. I placed it to 1-3. - Subjective Interval history: The patient is still intubated and sedated, responds appropriately to commands. Vital Signs, Last 4 Hours Temp Pulse Resp BP Pulse Ox 11/04/17 06:11 12 125/44 100 11/04/17 06:00 98.3 F 77 12 123/39 40 11/04/17 05:45 98.3 F 78 14 119/40 98 11/04/17 05:00 98.3 F 75 12 95/42 98 11/04/17 04:12 98.6 F 83 13 123/46 100 11/04/17 04:00 98.6 F 74 13 93/36 96 11/04/17 03:42 12 100 Clinical Data, last 8 Hours Output, Chest Tube Drainage 5 Amount [Mediastinal #4] Output, Chest Tube Drainage 10 Amount [Mediastinal #4] Output, Chest Tube Drainage 10 Amount [Mediastinal #4] Output, Chest Tube Drainage 0 Amount [Mediastinal #4] Output, Chest Tube Drainage 50 Amount [Mediastinal #4] Output, Chest Tube Drainage 80 Amount [Mediastinal #4] Output, Chest Tube Drainage 0 Amount [Mediastinal #3] Output, Chest Tube Drainage 0 Amount [Mediastinal #3] Output, Chest Tube Drainage 0 Amount [Mediastinal #3] Output, Chest Tube Drainage 60 Amount [Mediastinal #3] Output, Chest Tube Drainage 290 Amount [Mediastinal #3] Output, Chest Tube Drainage 0 Amount [Mediastinal #2] Output, Chest Tube Drainage 20 Amount [Mediastinal #2] Output, Chest Tube Drainage 0 Amount [Mediastinal #2] Output, Chest Tube Drainage 900 Amount [Mediastinal #2] Output, Chest Tube Drainage 475 Amount [Mediastinal #2] Output, Chest Tube Drainage 5 Amount [Mediastinal] Output, Chest Tube Drainage 5 Amount [Mediastinal] Output, Chest Tube Drainage 10 Amount [Mediastinal] Output, Chest Tube Drainage 10 Amount [Mediastinal] Output, Chest Tube Drainage 60 Amount [Mediastinal] Output, Chest Tube Drainage 380 Amount [Mediastinal] Weight 11/02/17 11/03/17 11/04/17 23:59 23:59 23:59 Weight 83.915 kg Lungs are clear to percussion and auscultation. Heart is in a normal sinus rhythm. All incisions are healing well without signs of infection and the sternum is stable. Chest tube drainage is now minimal and there is no air leak. - Labs 11/04/17 02:25 11/04/17 02:25 Lab Results, Last 24 hours 11/03/17 11/03/17 11/03/17 14:20 14:20 14:20 WBC 6.6 Hgb 13.1 Hct 39.8 Plt Count 203 INR 1.1 APTT Sodium 142 Potassium 4.4 Chloride 106 Carbon Dioxide 32 H BUN 24 H Creatinine 0.87 Glucose 97 Calcium 9.6 Magnesium 11/03/17 11/03/17 11/03/17 17:05 17:05 22:07 WBC 15.9 H D Hgb 9.2 L D Hct 27.5 L Plt Count 152 INR 1.2 APTT > 360.0 H* Sodium 139 Potassium 4.0 Chloride 106 Carbon Dioxide 29 BUN 23 Creatinine 0.79 Glucose 108 H Calcium 9.0 Magnesium 11/03/17 11/03/17 11/04/17 22:07 22:07 02:25 WBC 12.0 H Hgb 9.5 L Hct 27.7 L Plt Count 155 INR 1.6 APTT 34.5 D Sodium 141 Potassium 3.7 Chloride 108 H Carbon Dioxide 24 BUN 20 Creatinine 0.76 Glucose 107 H Calcium 8.3 L Magnesium 2.6 11/04/17 11/04/17 02:25 05:00 WBC Hgb Hct Plt Count INR 1.3 APTT 28.2 Sodium 142 Potassium 3.7 Chloride 110 H Carbon Dioxide 25 BUN 19 Creatinine 0.79 Glucose 175 H Calcium 8.7 Magnesium 2.0 Consult Discharge Plan - Plan Referrals: Kristie Anand MD [Primary Care Provider] -
[2017-11-04] MEDS: Aspirin 81 MG TAB.CHEW PO SCH (09:54)
[2017-11-04 11:36] LABS: ABG Base Excess 4 mEq/L (-2 to 3); ABG HCO3 28 mEq/L (21-27); ABG Oxygen Saturation 97 % (95-98); ABG PCO2 40 mmHg (35-45); ABG PH 7.46 pH Units (7.32-7.45); ABG PO2 89 mmHg (85-104); ABG TCO2 30 mEq/L (20-26); Blood Gas Modality ASSIST CONTROL; Blood Gas PEEP 5 cm H2O; Blood Gas Respiration Rate 17; Blood Gas VT 710 cc
[2017-11-04] MEDS ORDERED: ceFAZolin 2,000 MG in 0.9 % Sodium Chloride 100 ML IVPB SCH ×2 (13:00)
[2017-11-04] MEDS: Norepinephrine 4 MG in D5% in Water 250 ML IVC SCH (20:15)
[2017-11-04] MEDS: Dexmedetomidine HCl 400 MCG/100 ML MLS IVC SCH (20:15)
[2017-11-04] MEDS: *HR* OxyCODONE/APAP 5/325 TABLET PO PRN (23:19)
[2017-11-05 05:35] LABS: Basophils % 0.1 %; Eosinophils % 0.1 %; Hematocrit 27.8 % (37.5-50.1); Hemoglobin 9.2 g/dL (12.9-16.9); Immature Granulocytes % 0.5 % (0-4); Lymphocytes # 1.4 K/mcL (0.6-4.6); Mean Corpuscular HGB Conc 33.1 g/dL (31.6-35.5); Mean Corpuscular Hemoglobin 28.7 pg (28.0-33.3); Mean Corpuscular Volume 86.6 fL (83.0-100.0); Mean Platelet Volume 10.3 fL (9.4-12.4); Monocytes # 1.4 K/mcL (0.0-1.3); Monocytes % 9.3 %; Neutrophils # 12.4 K/mcL (1.6-8.9); Platelet Count 123 K/mcL (140-400); Red Blood Count 3.21 M/mcL (4.19-5.50); Red Cell Distribution Width 14.4 % (11.5-14.5)
[2017-11-05 06:20] LABS: BUN/Creatinine Ratio 33 (6-26); Blood Urea Nitrogen 32 mg/dL (8-23); Calcium 8.5 mg/dL (8.6-10.3); Carbon Dioxide 25 mEq/L (23-29); Chloride 106 mEq/L (98-107); Glucose 130 mg/dL (70-105); Osmolality,Calculated 293 (280-300); Potassium 4.9 mEq/L (3.5-5.1); Sodium 137 mEq/L (136-145); eGFR For African Americans > 60 (> 60); eGFR For Non-African Americans > 60 (> 60)
[2017-11-05] MEDS: *HR* OxyCODONE/APAP 5/325 TABLET PO PRN (07:31)
[2017-11-05] MEDS ORDERED: Furosemide 20 MG/2 ML VIAL IVP ONE ×2 (08:11→09:02)
[2017-11-05] MEDS ORDERED: Dextrose Gel 15 GM/37.5 ML TUBE PO PRN ×4 (08:11→09:02)
[2017-11-05] MEDS ORDERED: *HR* Dextrose 50 % in Water (Syg) 50 ML SYRINGE IVP PRN ×2 (08:11→09:02)
[2017-11-05] MEDS ORDERED: D5% in Water 1,000 ML IVC PRN ×2 (08:11→09:02)
[2017-11-05] MEDS ORDERED: Mannitol 25% vial 12.5 GM/50 ML VIAL IVP ONE (08:22)
[2017-11-05] MEDS ORDERED: Albumin Human 25% 25 GM/100 ML IV.SOLN IV ONE (08:22)
[2017-11-05] MEDS ORDERED: D5% in Water 250 ML IV BAG IV ONE (08:22)
[2017-11-05] MEDS ORDERED: Heparin 1,000 UNITS/500 mL IV.SOLN IVC ONE (08:22)
[2017-11-05] MEDS ORDERED: *HR* Phenylephrine 10 MG/ML VIAL IVC ONE (08:22)
[2017-11-05] MEDS ORDERED: Lidocaine 2% Syringe 100 MG/5 ML IV ONE (08:22)
[2017-11-05] MEDS ORDERED: *HR* Heparin 10,000 UNIT/10 ML VIAL IV ONE (08:22)
[2017-11-05] MEDS ORDERED: Tranexamic Acid 1,000 MG/10 ML VIAL IVPB ONE (08:22)
[2017-11-05] MEDS ORDERED: *HR* Magnesium Sulfate 2 GM/50 ML PIGGYBACK IVPB ONE (08:22)
--- NOTE | 2017-11-05 08:51 | Cardiothoracic Progress Note ---
Date of Encounter: 11/05/17 Time of Encounter: 08:48 - Assessment and plan (1) Unstable angina Current Visit: Yes Status: Acute The chest tubes and pacing wires were removed. We will check a stat portable chest x-ray. We will discontinue the insulin drip and place the patient on before meals and at bedtime Accu-Cheks with coverage. The patient does have a usual, expected acute postoperative blood loss anemia and did receive transfusion. We will transfer him to the floor. - Subjective Interval history: The patient has no complaints. Vital Signs, Last 4 Hours Temp Pulse Resp BP Pulse Ox 11/05/17 07:29 97.8 F 11/05/17 06:00 66 21 105/64 89 11/05/17 05:00 67 18 99/61 90 Oxgyen Flow Rate Oxygen Flow Rate (LPM) 4 Clinical Data, last 8 Hours Output, Chest Tube Drainage 70 Amount [Mediastinal #4] Output, Chest Tube Drainage 14 Amount [Mediastinal #3] Output, Chest Tube Drainage 20 Amount [Mediastinal] Weight 11/03/17 11/04/17 11/05/17 23:59 23:59 23:59 Weight 83.915 kg 82 kg Lungs are clear to percussion and auscultation. Heart is in a normal sinus rhythm. All incisions are healing well without signs of infection and the sternum is stable. Chest tube drainage is minimal and there is no air leak. - Labs 11/05/17 04:00 11/05/17 00:01 Lab Results, Last 24 hours 11/05/17 11/05/17 00:01 04:00 WBC 15.3 H Hgb 9.2 L Hct 27.8 L Plt Count 123 L Sodium 137 Potassium 4.9 D Chloride 106 Carbon Dioxide 25 BUN 32 H Creatinine 0.97 Glucose 130 H Calcium 8.5 L - VTE Documentation of Mechanical Device: Graduated compression elastic hosiery Consult Discharge Plan - Plan Referrals: Kristie Anand MD [Primary Care Provider] -
[2017-11-05] MEDS ORDERED: Naloxone 0.4 MG/ML INJ IVP PRN (09:02)
[2017-11-05] MEDS ORDERED: *HR* OxyCODONE/APAP 5/325 TABLET PO PRN (09:02)
[2017-11-05] MEDS ORDERED: *HR* Promethazine 25 MG/ML VIAL IVP PRN (09:02)
[2017-11-05] MEDS ORDERED: Acetaminophen 325 MG TABLET PO PRN (09:02)
[2017-11-05] MEDS: Ondansetron 4 MG/2 ML VIAL IVP PRN (09:45)
[2017-11-05] MEDS: hydroCHLOROthiazide 25 MG TABLET PO SCH (09:53)
[2017-11-05] MEDS: Insulin LISPRO 300 UNITS/3 ML VIAL SQ SCH ×3 (11:22→19:56)
[2017-11-05] MEDS ORDERED: Insulin LISPRO 300 UNITS/3 ML VIAL SQ SCH ×2 (11:30→21:00)
[2017-11-05] MEDS: *HR* Heparin 5,000 UNIT/ML VIAL SQ SCH (18:03)
[2017-11-05] MEDS: Chlorhexidine Rinse 15 ML MOUTHWASH MM SCH ×2 (19:16→19:55)
[2017-11-05] MEDS: Aspirin 81 MG TAB.CHEW PO SCH (19:16)
[2017-11-05] MEDS: Furosemide 20 MG/2 ML VIAL IVP SCH (19:55)
[2017-11-06 04:04] LABS: Basophils % 0.1 %; Hemoglobin 9.4 g/dL (12.9-16.9); Lymphocytes # 1.4 K/mcL (0.6-4.6); Mean Corpuscular HGB Conc 33.6 g/dL (31.6-35.5); Mean Corpuscular Hemoglobin 28.7 pg (28.0-33.3); Mean Corpuscular Volume 85.4 fL (83.0-100.0); Mean Platelet Volume 10.5 fL (9.4-12.4); Monocytes # 1.4 K/mcL (0.0-1.3); Monocytes % 8.1 %; Neutrophils # 14.8 K/mcL (1.6-8.9); Platelet Count 128 K/mcL (140-400); Red Blood Count 3.28 M/mcL (4.19-5.50); Red Cell Distribution Width 14.2 % (11.5-14.5); Segmented Neutrophils % 82.8 %
[2017-11-06 04:25] LABS: BUN/Creatinine Ratio 34 (6-26); Blood Urea Nitrogen 35 mg/dL (8-23); Calcium 8.6 mg/dL (8.6-10.3); Carbon Dioxide 28 mEq/L (23-29); Chloride 100 mEq/L (98-107); Glucose 154 mg/dL (70-105); Osmolality,Calculated 289 (280-300); Potassium 4.5 mEq/L (3.5-5.1); Sodium 134 mEq/L (136-145); eGFR For African Americans > 60 (> 60); eGFR For Non-African Americans > 60 (> 60)
[2017-11-06] MEDS: *HR* Heparin 5,000 UNIT/ML VIAL SQ SCH ×2 (06:37→17:33)
[2017-11-06] MEDS: Insulin LISPRO 300 UNITS/3 ML VIAL SQ SCH ×4 (08:09→22:05)
[2017-11-06] MEDS: Chlorhexidine Rinse 15 ML MOUTHWASH MM SCH ×2 (08:47→22:04)
[2017-11-06] MEDS: hydroCHLOROthiazide 25 MG TABLET PO SCH (08:47)
[2017-11-06] MEDS: Furosemide 20 MG/2 ML VIAL IVP SCH ×2 (08:47→22:04)
[2017-11-06] MEDS: Aspirin 81 MG TAB.CHEW PO SCH (08:48)
--- NOTE | 2017-11-06 11:21 | Cardiothoracic Progress Note ---
Date of Encounter: 11/06/17 Time of Encounter: 11:17 - Subjective Procedure(s) Performed: Patient seen and examined. Reportedly no acute events overnight per nursing. In summary, Mr. Sorensen is a 72-year-old white male who underwent emergent CABG 2 on 11/03/2017. He notably required dilatory balloon pump preoperatively for unstable angina. His balloon pump, chest tubes and pacing wires involving removed. He reportedly has remained in sinus rhythm and has had no significant arrhythmias. He is without any significant complaint is currently sitting up in the chair in no acute distress. He has good cough and inspiratory effort. His sternal wound dressing is clean, dry and intact and he has no evidence of sternal instability. The patient is currently awaiting transfer to the [facility] but beds are currently not available. Vital Signs, Last 4 Hours Temp Pulse Resp BP Pulse Ox 11/06/17 08:26 98.4 F 11/06/17 08:00 72 16 108/62 94 Oxgyen Flow Rate Oxygen Flow Rate (LPM) 10 Clinical Data, last 8 Hours Output, Urine Amount 200 Output, Urine Amount 100 Weight 11/04/17 11/05/17 11/06/17 23:59 23:59 23:59 Weight 82 kg - Physical Examination General: Other (Sitting up in chair in no acute distress, awake and alert) Incision: Other (Wound dressed, clean, dry and intact) Pacing Wires: Removed - Labs 11/06/17 00:01 11/06/17 00:01 Lab Results, Last 24 hours 11/06/17 11/06/17 00:01 00:01 WBC 17.9 H Hgb 9.4 L Hct 28.0 L Plt Count 128 L Sodium 134 L Potassium 4.5 Chloride 100 Carbon Dioxide 28 BUN 35 H Creatinine 1.02 Glucose 154 H Calcium 8.6 - VTE Documentation of Mechanical Device: Graduated compression elastic hosiery Consult Discharge Plan - Plan Referrals: Kristie Anand MD [Primary Care Provider] -
--- NOTE | 2017-11-06 17:01 | Electrocardiograph Report ---
[place] [id number] Test Date: 2017-11-03 Pat Name: Timoteo Sorensen Department: 109 Room: [facility] Gender: Vocal Teacher: UMM : 1945 Requested By: Gilberto Redd Order Number: [id number] Reading MD: Lorraine Padilla Measurements Intervals [place] Rate: 72 P: 35 CA: 132 QRS: 24 QRSD: 120 T: 89 QT: 403 QTc: 428 Interpretive Statements SINUS RHYTHM MODERATE INTRAVENTRICULAR CONDUCTION DELAY NONSPECIFIC ST & T-WAVE ABNORMALITY Electronically Signed On 11-06-2017 16:59:38 EDT by Lorraine Padilla
[2017-11-07] MEDS: *HR* Heparin 5,000 UNIT/ML VIAL SQ SCH ×2 (05:23→17:37)
[2017-11-07] MEDS: Ondansetron 4 MG/2 ML VIAL IVP PRN (05:38)
[2017-11-07] MEDS: Insulin LISPRO 300 UNITS/3 ML VIAL SQ SCH ×4 (08:00→21:33)
[2017-11-07] MEDS: Furosemide 20 MG/2 ML VIAL IVP SCH ×2 (08:03→21:32)
[2017-11-07] MEDS: hydroCHLOROthiazide 25 MG TABLET PO SCH (08:03)
[2017-11-07] MEDS: Aspirin 81 MG TAB.CHEW PO SCH (08:03)
[2017-11-07] MEDS: Chlorhexidine Rinse 15 ML MOUTHWASH MM SCH ×2 (08:04→21:32)
--- NOTE | 2017-11-07 10:37 | Cardiothoracic Progress Note ---
Date of Encounter: 11/07/17 Time of Encounter: 10:35 - Subjective Procedure(s) Performed: Patient seen and examined. He was transferred to the stepdown floor yesterday and reportedly no acute events overnight per nursing. In summary, Mr. Sorensen is a 72-year-old white male who underwent emergent CABG 2 on 2017. He notably required dilatory balloon pump preoperatively for unstable angina. His balloon pump, chest tubes and pacing wires involving removed. He reportedly has remained in sinus rhythm and has had no significant arrhythmias. He is without any significant complaint is currently sitting up in the chair in no acute distress. He has good cough and inspiratory effort. His sternal wound dressing is clean, dry and intact and he has no evidence of sternal instability. The patient has not yet had a bowel movement but is passing flatus. He states that he has had some notable visual disturbances with his medications. I suggested he try to cut back on his narcotics and we will use nonsteroidal anti-inflammatories given he has limited pain. Vital Signs, Last 4 Hours Temp Pulse Resp BP Pulse Ox 11/07/17 08:28 85 97 11/07/17 08:11 99 F 76 18 114/63 100 Oxgyen Flow Rate Oxygen Flow Rate (LPM) 2 Clinical Data, last 8 Hours Output, Urine Amount 675 Weight 11/05/17 11/06/17 11/07/17 23:59 23:59 23:59 Weight 87.5 kg - Physical Examination General: Other (Sitting up in chair, awake, alert, no acute distress) Sternum: Stable Pacing Wires: Removed Lungs: Normal Breath Sounds - Labs 11/06/17 00:01 11/06/17 00:01 - VTE Documentation of Mechanical Device: Graduated compression elastic hosiery Consult Discharge Plan - Plan Referrals: Kristie Anand MD [Primary Care Provider] -
[2017-11-08] MEDS: Ondansetron 4 MG/2 ML VIAL IVP PRN (05:43)
[2017-11-08] MEDS: *HR* Heparin 5,000 UNIT/ML VIAL SQ SCH ×2 (05:43→21:32)
[2017-11-08] MEDS: Furosemide 20 MG/2 ML VIAL IVP SCH (07:50)
[2017-11-08] MEDS: hydroCHLOROthiazide 25 MG TABLET PO SCH (07:50)
[2017-11-08] MEDS: Insulin LISPRO 300 UNITS/3 ML VIAL SQ SCH ×4 (07:50→21:38)
[2017-11-08] MEDS: Aspirin 81 MG TAB.CHEW PO SCH (07:50)
[2017-11-08] MEDS: Chlorhexidine Rinse 15 ML MOUTHWASH MM SCH ×2 (07:51→21:38)
--- NOTE | 2017-11-08 08:36 | Cardiothoracic Progress Note ---
Date of Encounter: 11/08/17 Time of Encounter: 08:34 - Assessment and plan (1) Unstable angina Current Visit: Yes Status: Acute We will plan to discharge the patient tomorrow with a home health aide. - Subjective Interval history: The patient complains of mild constipation. He has been ambulating without difficulty. Vital Signs, Last 4 Hours Temp Pulse Resp BP Pulse Ox 11/08/17 08:02 18 100 11/08/17 06:38 98.4 F 77 18 114/73 100 Oxgyen Flow Rate Oxygen Flow Rate (LPM) 2 Clinical Data, last 8 Hours Output, Urine Amount 350 Weight 11/06/17 11/07/17 11/08/17 23:59 23:59 23:59 Weight 87.5 kg 88.9 kg Lungs are clear to percussion and auscultation. Heart is in a normal sinus rhythm. All incisions are healing well without signs of infection and the sternum is stable. - Labs 11/06/17 00:01 11/06/17 00:01 - VTE Documentation of Mechanical Device: Graduated compression elastic hosiery Consult Discharge Plan - Plan Referrals: Kristie Anand MD [Primary Care Provider] -
[2017-11-09 06:04] LABS: Basophils % 0.1 %; Eosinophils # 0.1 K/mcL (0.0-0.6); Eosinophils % 0.8 %; Hematocrit 26.8 % (37.5-50.1); Hemoglobin 8.6 g/dL (12.9-16.9); Immature Granulocytes % 3.3 % (0-4); Lymphocytes # 1.1 K/mcL (0.6-4.6); Lymphocytes % 9.8 %; Mean Corpuscular HGB Conc 32.1 g/dL (31.6-35.5); Mean Corpuscular Hemoglobin 28.2 pg (28.0-33.3); Mean Corpuscular Volume 87.9 fL (83.0-100.0); Mean Platelet Volume 10.2 fL (9.4-12.4); Monocytes # 1.1 K/mcL (0.0-1.3); Monocytes % 9.5 %; Neutrophils # 8.9 K/mcL (1.6-8.9); Nucleated Red Blood Cells 0.3 /100 WBC (0); Platelet Count 218 K/mcL (140-400); Red Blood Count 3.05 M/mcL (4.19-5.50); Red Cell Distribution Width 14.2 % (11.5-14.5); Segmented Neutrophils % 76.5 %
[2017-11-09] MEDS: *HR* Heparin 5,000 UNIT/ML VIAL SQ SCH (06:06)
[2017-11-09 06:29] LABS: BUN/Creatinine Ratio 37 (6-26); Blood Urea Nitrogen 28 mg/dL (8-23); Carbon Dioxide 32 mEq/L (23-29); Chloride 93 mEq/L (98-107); Glucose 139 mg/dL (70-105); Osmolality,Calculated 280 (280-300); Potassium 3.6 mEq/L (3.5-5.1); Sodium 131 mEq/L (136-145); eGFR For African Americans > 60 (> 60); eGFR For Non-African Americans > 60 (> 60)
[2017-11-09] MEDS ORDERED: Furosemide 40 MG/4 ML VIAL IVP ONE (07:45)
[2017-11-09] MEDS: Insulin LISPRO 300 UNITS/3 ML VIAL SQ SCH ×2 (07:51→11:47)
[2017-11-09] MEDS: hydroCHLOROthiazide 25 MG TABLET PO SCH (08:43)
[2017-11-09] MEDS: Aspirin 81 MG TAB.CHEW PO SCH (08:44)
[2017-11-09] MEDS: Chlorhexidine Rinse 15 ML MOUTHWASH MM SCH (08:44)
[2017-11-09] MEDS ORDERED: MOM Conc 10 ML UD.LIQ PO SCH (09:00)
[2017-11-09 12:12] VITALS: BP 106/66
[2017-11-09] MEDS ORDERED: Bisacodyl 10 MG RECTAL SUPPOSITORY RC PRN (12:29)
--- NOTE | 2017-11-09 13:04 | Discharge Summary ---
Date of Encounter: 11/09/17 Time of Encounter: 12:57 - Discharge Diagnosis (1) Unstable angina Priority: Primary Status: Acute (2) Postoperative pain Priority: Secondary Status: Acute - Hospital Course Hospital course: Mr. Sorensen is a 72 year old male The patient is a 72-year-old gentleman who presented with a positive stress test. Cardiac catheterization revealed left main and proximal LAD disease. He had 10 out of 10 chest pain in the catheterization lab and an intraoperative balloon pump was inserted. On 11/03/2017, I took him to the operating room for emergency coronary artery bypass grafting 2, utilizing his left internal mammary artery. The patient had postoperative bleeding. He did receive fresh frozen plasma, cryoprecipitate, platelets, packed cells and does well present. He did have the usual, expected acute postoperative blood loss anemia. The bleeding subsided. On November 04, his intra-aortic balloon pump was removed. On November 05, his chest tubes and pacing wires were removed. The patient otherwise did well and was discharged on November 09. At that time, he was afebrile. Lungs were clear to percussion and auscultation. Heart was in a normal sinus rhythm. All incisions were healing well without signs of infection and the sternum was stable. Discharge medications are on the [place] in include Percocet for pain. I did check the [place] automated Rx reporting system. Appropriate precautions were given. He was given a one-week supply and he was postoperative. He was to return to his previous and regular diet. He was to avoid heavy lifting for a total of 3 months after surgery. He was to walk as much as possible. He was to avoid driving for 1 month. He was to follow up and see me in the office in 4 weeks as directed. 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 - Time Spent with Patient Total time spent providing and/or coordinating discharge services: - Discharge Medications Prescriptions: OxyCODONE/APAP 5/325 [Percocet 5/325 MG] 1 each PO Q4HR PRN 7 Days #20 tablet PRN Reason: Severe Pain Aspirin 81 mg PO DAILY #60 tab.chew Metoprolol [Lopressor] 12.5 mg PO BID #60 tablet Home Medications: Atorvastatin [Lipitor] 40 mg PO HS 03/04/17 [History] hydroCHLOROthiazide [Hydrochlorothiazide] 25 mg PO DAILY 06/16/17 [History] Aspirin 81 mg PO DAILY #60 tab.chew 11/09/17 [Rx] Metoprolol [Lopressor] 12.5 mg PO BID #60 tablet 11/09/17 [Rx] OxyCODONE/APAP 5/325 [Percocet 5/325 MG] 1 each PO Q4HR PRN 7 Days #20 tablet [Rx] Allergies/Adverse Reactions: 3 Allergy/AdvReac Type Severity Reaction Status Date / Time No Known Allergies Allergy Verified 11/03/17 15:04 Date of admission: 11/03/17 22:04 Primary care physician: Kristie Anand, Consults: 11/03/17 22:07 Consult to Cardiac Rehabilitation-Phase1 [CONS] Routine Comment: Reason for Consult: Post open heart Call Completed: Yes Consult to Brush Cutter [CONS] Routine Reason for SW Consult: open heart 11/05/17 09:02 Consult for Pharmacy Education [CONS] Routine Reason for Consult: Post-Op Heart Call Completed: Yes Consult to Occupational Therapy [CONS] Routine Comment: Evaluate, develop and implement POC Reason for Consult: Post-Op Heart Does patient have active BEDREST order?: No Is patient medically & hemodynamically stable?: Yes Consult to Physical Therapy [CONS] Routine Comment: Evaluate, develop and implement POC Reason for Consult: Post open heart Does patient have active BEDREST order?: No Is patient medically & hemodynamically stable?: Yes Procedure(s) Performed: 11/03/2017. Coronary artery bypass grafting 2, utilizing the left internal mammary artery. Discharging clinician: Gilberto Redd Anticipated date of discharge: 11/09/17 Physical Examination Vital Signs, Last 4 Hours Temp Pulse Resp BP Pulse Ox 11/09/17 11:30 98.3 F 78 16 106/66 91 11/09/17 11:19 16 93 11/09/17 09:00 77 - Patient Status Disposition: Home, Self-Care Condition: Fair Functional capacity at discharge: independent ambulation Overall status at discharge: patient is progressing back to baseline - Discharge Instructions Follow Up With: Kristie Anand MD [Primary Care Provider] - 11/19/17 11:00 am Derrek Mejia MD [Partnered Physician] - 11/19/17 9:30 am Gilberto Redd MD [Partnered Physician] - 12/02/17 1:15 pm [facility] Aspirin Cont/Prescribed at DC: Yes Beta [place] Cont/Prescribed at DC: Yes Statin Cont/Prescribed at DC: Yes KENN/ARB Cont/Prescribed at DC: Not indicated - VTE Documentation of Mechanical Device: Graduated compression elastic hosiery
--- NOTE | 2017-11-09 13:11 | Physician Discharge Referral ---
Home Health/Hosp Referral Info Transfer to: Home Health Provider in Charge Post Discharge: PCP - Diagnosis (1) Unstable angina Priority: Primary Status: Acute (2) Postoperative pain Priority: Secondary Status: Acute - Respiratory Orders Smoking Cessation: Smoking cessation has been advised. For more information, call the [place] Tobacco Quit Line at 5-866-ZOJO-NOW. - Diet/Nutrition Diet/Nutrition Orders: Regular - Activity Activity Orders: Up ad paty, Ambulate, Chair - Services Needed Following services are medically necessary services: Home Health Aide, Physical Therapy, Occupational Therapy - Transfer Medications Prescriptions: OxyCODONE/APAP 5/325 [Percocet 5/325 MG] 1 each PO Q4HR PRN 7 Days #20 tablet PRN Reason: Severe Pain Aspirin 81 mg PO DAILY #60 tab.chew Metoprolol [Lopressor] 12.5 mg PO BID #60 tablet Home Medications: Atorvastatin [Lipitor] 40 mg PO HS 03/04/17 [History] hydroCHLOROthiazide [Hydrochlorothiazide] 25 mg PO DAILY 06/16/17 [History] Aspirin 81 mg PO DAILY #60 tab.chew 11/09/17 [Rx] Metoprolol [Lopressor] 12.5 mg PO BID #60 tablet 11/09/17 [Rx] OxyCODONE/APAP 5/325 [Percocet 5/325 MG] 1 each PO Q4HR PRN 7 Days #20 tablet [Rx] Allergies/Adverse Reactions: 3 Allergy/AdvReac Type Severity Reaction Status Date / Time No Known Allergies Allergy Verified 11/03/17 15:04 Certification: Further, I certify that my clinical findings support that this patient is homebound (i.e. absences from home require considerable and taxing effort and are for medical reasons or congregational services or infrequently or short duration when for other reasons) because: Homebound Reason: Post-surgery restriction and or conditions limit ability to leave home Attestation: My signature below is to certify that this patient is under my care and that I, or nurse practitioner, or a physician's general assistant working with me, has a face-to -face encounter with this patient.
== END 2017-11-09 15:35 | disposition home or self-care (01) | DRG 234 ==
LOC: 2NENU → ICNU 17:41 → 2NNU 11-06 17:29
PROVIDERS: ADMIT Internal Medicine Cardiovascular Disease; ATTEND Thoracic Surgery (Cardiothoracic Vascular Surgery)